=== PATIENT | male | born 1965 | race Caucasian/White ===

== ENCOUNTER → 2020-03-22 | Outpatient (CLI) | payer MEDICARE ==
[~2020-03-22] MED LIST: ABAC1TAB14 PO; ACYC-114 PO; HYDR-3245 PO; LEVO112T41 PO; LEVO50TA64 PO; METH10TA6 PO; METH5TAB6 PO; SULF1TAB24 PO
== END | disposition home or self-care (01) ==
LOC: RAD 16:25
PROVIDERS: ATTEND Neurological Surgery
DX: M51.35 Other intervertebral disc degeneration, thoracolumbar region (principal); M48.05 Spinal stenosis, thoracolumbar region; M41.85 Other forms of scoliosis, thoracolumbar region
CPT/HCPCS: 72082; 72110